=== PATIENT | male | born 1965 | race Hispanic/Latino ===

== ENCOUNTER 2019-03-30 05:54 | Day surgery (SDC) | payer OTHER ==
[2019-03-30] VITALS (9 sets, daily range): BP systolic 95–144; BP diastolic 69–95
[~2019-03-30] VITALS: Ht 185.4 cm; Wt 114.6 kg
[~2019-03-30 05:54] MED LIST: GABA-531 PO; OMEP40CA13 PO; SODIUM CHLORIDE 0.9% 1000ML 1,000 ML IV ONE; TRAM50TA4 PO
[2019-03-30] MEDS ORDERED: LIDOCAINE HCL 1% 20 ML VIAL ONE (06:23)
[2019-03-30] MEDS ORDERED: GLYCOPYRROLATE 0.2 MG/ML 5 ML VIAL ONE (06:23)
[2019-03-30] MEDS ORDERED: PROPOFOL 10 MG/ML 20ML VIAL IV ONE (06:23)
[2019-03-30] MEDS ORDERED: METOCLOPRAMIDE 10 MG/2 ML VIAL ONE (06:35)
== END 2019-03-30 08:35 | disposition home or self-care (01) ==
LOC: DAH 05:54 → ENDO 05:54
PROVIDERS: ATTEND Internal Medicine
DX: D50.9 Iron deficiency anemia, unspecified (principal); K63.5 Polyp of colon; K57.30 Diverticulosis of large intestine without perforation or abscess without bleeding; K44.9 Diaphragmatic hernia without obstruction or gangrene; K31.89 Other diseases of stomach and duodenum; K64.0 First degree hemorrhoids; I48.91 Unspecified atrial fibrillation; R10.13 Epigastric pain; K21.9 Gastro-esophageal reflux disease without esophagitis; E66.9 Obesity, unspecified; Z79.899 Other long term (current) drug therapy; Z98.890 Other specified postprocedural states; Z82.49 Family history of ischemic heart disease and other diseases of the circulatory system; Z72.89 Other problems related to lifestyle; Z83.3 Family history of diabetes mellitus; Z95.0 Presence of cardiac pacemaker; Z68.35 Body mass index [BMI] 35.0-35.9, adult; Z87.891 Personal history of nicotine dependence
CPT/HCPCS: 43239; 45385; 88305; 93005; A4215; A4221; A4222; A4223; A4606; A4620; A4663; J2704; J2765; J3490; J7030

== ENCOUNTER → 2019-12-06 | Outpatient (CLI) | payer OTHER ==
[~2019-12-06] MED LIST changes: -SODIUM CHLORIDE 0.9% 1000ML 1,000 ML IV ONE
== END | disposition home or self-care (01) ==
LOC: SHCH 10:50
PROVIDERS: ATTEND Internal Medicine Cardiovascular Disease
DX: R00.2 Palpitations (principal); R00.0 Tachycardia, unspecified; Z95.0 Presence of cardiac pacemaker
CPT/HCPCS: 93306; 93356

== ENCOUNTER 2021-11-10 05:52 | Observation (INO) | payer OTHER ==
[2021-11-06 12:55] LABS: BASOPHILS % (AUTO) 0.8 % (0.0-5.0); EOSINOPHILS % (AUTO) 2.4 % (0.0-8.0); HEMATOCRIT 55.5 % (42-54); LYMPHOCYTES % (AUTO) 29.3 % (21.0-51.0); MEAN CORPUSCULAR HEMOGLOBIN 28.3 pg (27.0-33.0); MEAN CORPUSCULAR HGB CONC 31.5 g/dL (32.0-36.0); MEAN CORPUSCULAR VOLUME 89.7 fL (79-99); MONOCYTES % (AUTO) 10.3 % (3.0-13.0); NEUTROPHILS % (AUTO) 56.8 % (40.0-77.0); PLATELET COUNT (AUTO) 301 K/uL (130-400); RED BLOOD CELL COUNT(AUTO) 6.19 MIL/uL (4.50-6.20); RED CELL DISTRIBUTION WIDTH 14.5 % (11.0-15.5); WHITE BLOOD COUNT (AUTO) 9.1 K/uL (4.8-10.8)
[2021-11-06 13:05] LABS: INR 1.01 (0.85-1.15)
[2021-11-06 13:07] LABS: PARTIAL THROMBOPLASTIN TIME 34.6 SEC (26.3-35.5)
[2021-11-06 13:08] LABS: CREATININE 0.9 mg/dL (0.5-1.5); POTASSIUM 4.6 mmol/L (3.5-5.1)
[2021-11-06 14:22] VITALS: BP 110/68
[~2021-11-10] VITALS: Ht 188 cm; Wt 113.4 kg
[~2021-11-10 05:52] MED LIST changes: +APIX5TAB PO; +ATOR40TA71 PO; +CHOL100046 PO; +CYAN100099 PO; +FERR-82 PO; +METO50TA18 PO; -OMEP40CA13 PO; +SACU1TAB7 PO; -TRAM50TA4 PO
[2021-11-10 06:47] VITALS: BP 122/90
[2021-11-10] MEDS ORDERED: LIDOCAINE HCL 1% MDV 50ML VIAL ONE ×2 (07:20→15:45)
[2021-11-10] MEDS ORDERED: BUPIVACAINE/PF 0.25% 30ML VIAL IJ ONE (07:20)
[2021-11-10] MEDS ORDERED: 0.9%NACL 1000ML 1,000 ML IV SCH (08:00)
[2021-11-10] MEDS ORDERED: CEFAZOLIN SODIUM 1 GM VIAL IVP ONE (08:00)
[2021-11-10] MEDS ORDERED: IOHEXOL-350 50ML VIAL IV ONE ×2 (12:50→14:33)
[2021-11-10] MEDS ORDERED: MIDAZOLAM HCL 1 MG/ML 2ML VIAL ONE ×3 (12:54→13:29)
[2021-11-10] MEDS ORDERED: MEPERIDINE-PF 25 MG/ML SYG ONE ×4 (12:54→15:55)
[2021-11-10] MEDS ORDERED: DiphenhydrAMINE HCL 50 MG/ML VIAL ONE (13:26)
[2021-11-10] MEDS ORDERED: HEPARIN 10,000 UNIT/10ML (1,000 UNIT/ML) VIAL ONE (15:45)
[2021-11-10] MEDS ORDERED: ACETAMINOPHEN WITH CODEINE 1 TAB TAB PO PRN (17:00)
[2021-11-10 19:00] VITALS: BP 131/94
[2021-11-10] MEDS ORDERED: GABAPENTIN 300 MG CAPSULE ONE (19:45)
[2021-11-10] MEDS: SACUBITRIL/VALSARTAN 1 EACH TABLET PO SCH (20:24)
[2021-11-10] MEDS: GABAPENTIN 300 MG CAPSULE PO SCH (20:26)
[2021-11-10] MEDS: CARVEDILOL 3.125 MG TABLET PO SCH (20:27)
[2021-11-11] VITALS: BP 130/96
[2021-11-11 03:00] VITALS: BP 138/90
[2021-11-11] MEDS ORDERED: CYANOCOBALAMIN (VITAMIN B-12) 1,000 MCG TABLET ONE (07:29)
[2021-11-11] MEDS ORDERED: ATORVASTATIN 40 MG TABLET ONE (07:30)
[2021-11-11] MEDS: GABAPENTIN 300 MG CAPSULE PO SCH (07:32)
[2021-11-11] MEDS: CARVEDILOL 3.125 MG TABLET PO SCH (07:33)
[2021-11-11 07:59] VITALS: BP 134/91
[2021-11-11] MEDS ORDERED: ATORVASTATIN 40 MG TABLET PO SCH (09:00)
[2021-11-11] MEDS ORDERED: CYANOCOBALAMIN (VITAMIN B-12) 1,000 MCG TABLET PO SCH (09:00)
[2021-11-11] MEDS: SACUBITRIL/VALSARTAN 1 EACH TABLET PO SCH (09:11)
[2021-11-11 11:19] VITALS: BP 117/75
== END 2021-11-11 14:24 | disposition home or self-care (01) ==
LOC: DAH 05:52 → DAHIP 05:53 → DAH 05:53 → 2DH 17:13
PROVIDERS: ADMIT Internal Medicine Cardiovascular Disease; ATTEND Internal Medicine Cardiovascular Disease
DX: I42.0 Dilated cardiomyopathy (principal); I48.19 Other persistent atrial fibrillation; I47.1 Supraventricular tachycardia; Z79.899 Other long term (current) drug therapy; Z86.73 Personal history of transient ischemic attack (TIA), and cerebral infarction without residual deficits; Z87.891 Personal history of nicotine dependence; Z45.018 Encounter for adjustment and management of other part of cardiac pacemaker
CPT/HCPCS: 33225; 33233; 33249; 36415; 71045 ×2; 80048; 85025; 85610; 85730; 93005; 93619; 93650; A4215; A4216; A4221; A4222; A4223 ×3; A4606; A4649 ×2; A4663; C1732; C1769 ×3; C1882; C1894; C1895; C1900; G0378 ×21; J0690; J1200; J1644 ×2; J2175 ×4; J2250 ×2; J3490 ×3; J7030; Q9967 ×2; 99156; 99157